=== PATIENT | male | born 1945 | race Caucasian/White ===

== ENCOUNTER → 2016-08-26 | Outpatient (CLI) | payer OTHER ==
--- NOTE | ~2016-08-26 | MR17 ---
[facility] A Service of [facility] & [facility] RADIOLOGY TEXT RESULTS PATIENT: DINA CORONADO SR LOCATION: [facility] : 47 UNIT #: [id number] AGE: [address]: COLEEN MARTIN SEX: M ORDER DR: [id number] [address] [id number] [id number] O MR#: [id number] Acc #: [id number] NAME: DINA CORONADO : 1945 SEX: M STUDY DATE/TIME: 08/26/2016 13:03 UNIT: [facility] ROOM: STUDY DESCRIPTION: MR Brain WWo Contrast Attending Physician: Coleen Martin M.D. Referring Physician: Coleen Martin M.D. Ordering Physician: Physician Non-Staff Primary Care Physician: Kim Moctezuma M.D. MRI CENTER REPORT This report is preliminary unless electronic signature is present. EXAM Brain MRI with and without contrast 08/26/2016 HISTORY Headaches, diplopia and memory loss beginning June 2016. Pain and pressure behind the eyes with clinical concern for trigeminal neuralgia. TECHNIQUE Multiplanar imaging of the brain was performed with thin detailed sections through the orbits with and without contrast. 18 mL of MultiHance was used. FINDINGS On diffusion weighted imaging there is no evidence of abnormal restricted diffusion to suggest a recent infarct. The routine brain images show extensive chronic ischemic changes in the periventricular deep white matter bilaterally. Mild chronic ischemic changes are seen in the cerebellum. There is no evidence of mass lesion, hemorrhage or edema. Orbital imaging shows no evidence of trigeminal nerve enlargement or enhancement on either side. The gasserian ganglia is symmetric on each side. The optic nerves are symmetric with no evidence of optic nerve edema. Of note is absence of a flow void in the left internal carotid artery. This correlates with the MR angiographic examination that demonstrated left internal carotid artery occlusion. IMPRESSION 1. There is absent of a flow void in the left internal carotid artery consistent with left internal carotid artery occlusion as seen on the MRA obtained earlier today. 2. Normal appearance of the trigeminal nerves and Meckel cave. 3. Extensive chronic ischemic changes around ventricles with mild chronic ischemic changes in the cerebellum. No evidence of recent infarct. [facility]. [facility] A Service of [facility] & [facility] RADIOLOGY TEXT RESULTS PATIENT: DINA CORONADO SR LOCATION: [facility] : 47 UNIT #: [id number] AGE: [address]: COLEEN MARTIN SEX: M ORDER DR: 4. No evidence of orbital mass or optic nerve edema. Dictated by... Tony Dueñas M.D. THIS IS AN ELECTRONICALLY VERIFIED REPORT Tony Dueñas M.D. at 08/26/2016 4:39 PM LUZ/natalie TD: 08/26/2016 16:02 JOB #: [id number] MRI CENTER REPORT Page 1 of 1
--- NOTE | ~2016-08-26 | MR122 ---
[facility] A Service of [facility] RADIOLOGY TEXT RESULTS PATIENT: DINA CORONADO SR LOCATION: [facility] : 47 UNIT #: [id number] AGE: [address]: COLEEN MARTIN SEX: M ORDER DR: [id number] [place] [id number] O MR#: [id number] Acc #: [id number] NAME: DINA CORONADO : 1945 SEX: M STUDY DATE/TIME: 08/26/2016 10:06 UNIT: [facility] ROOM: STUDY DESCRIPTION: MR MRA Head Wo Contrast Attending Physician: Coleen Martin M.D. Referring Physician: Coleen Martin M.D. Ordering Physician: Physician Non-Staff Primary Care Physician: Kim Moctezuma M.D. MRI CENTER REPORT This report is preliminary unless electronic signature is present. EXAM Intracranial MR angiogram HISTORY Headaches, diplopia, memory loss and pressure sensation behind the eyes. Symptoms intermittent since June 2016. TECHNIQUE MR angiograph imaging was performed from the skull base to the [place]. FINDINGS There is no flow seen in the distal left internal carotid artery. There is cross filling from right to left at the [place]. The right carotid siphon is patent. The posterior circulation is unremarkable. There is no evidence of aneurysm, vascular malformation or major intracranial branch vessel cutoff. IMPRESSION Occluded left cervical internal carotid with cross filling from right to left at the [place] filling the left MCA branches. Otherwise negative. Dictated by... Tony Dueñas M.D. THIS IS AN ELECTRONICALLY VERIFIED REPORT Tony Dueñas M.D. at 08/26/2016 4:39 PM LUZ/fabi TD: 08/26/2016 15:11 JOB #: [id number] [facility] A Service [facility] RADIOLOGY TEXT RESULTS PATIENT: DINA CORONADO SR LOCATION: [facility] : 47 UNIT #: [id number] AGE: [address]: COLEEN MARTIN SEX: M ORDER DR: MRI CENTER REPORT Page 1 of 1
[2016-08-26 10:50] LABS: POC - CREATININE 0.92 mg/dL (0.64-1.27); POC - GFR >60.0 mL/min (>60)
== END | disposition home or self-care (01) ==
LOC: SMRI 09:17
PROVIDERS: Internal Medicine Sleep Medicine
DX: H53.2 Diplopia (principal); R41.3 Other amnesia; G50.0 Trigeminal neuralgia; I65.22 Occlusion and stenosis of left carotid artery
CPT/HCPCS: 70544; 70553; 82565; A9581